=== PATIENT | male | born 1990 | race Caucasian/White ===

== ENCOUNTER 2023-05-04 10:27 | Emergency (ER) | payer MEDICAID ==
[~2023-05-04] VITALS: Ht 167.6 cm; Wt 71.7 kg
--- NOTE | 2023-05-04 10:28 | NUR ---
CALLED FOR TRIAGE AND TOLD ME TO WAIT.
[2023-05-04 10:55] VITALS: BP_SYST 133
--- NOTE | 2023-05-04 11:00 | NUR ---
Patient to ER bed 8 to gown for evaluation. Side rails up. Report given to OLIVIER SIMMONS.
--- NOTE | 2023-05-04 11:00 | NUR ---
PATIENT C/O LOW BACK PAIN 07/07 X 3 1/2 WEEKS. STATES HE HAS TAKEN ADVIL & TYLENOL WITH NO RELIEF. SEEKING EVALUATION. DENIES TRAUMA TO AREA. POOR HISTORIAN D/T INATTENTION.
--- NOTE | 2023-05-04 11:05 | NUR ---
DR MARVIN AT BEDSIDE
[2023-05-04] MEDS ORDERED: KETOROLAC TROMETHAMINE 60 MG/2 ML VIAL IM ONE (11:15)
[2023-05-04] MEDS ORDERED: HYDROcodone/ACETAMIN 10-325 MG TAB PO ONE (11:15)
[2023-05-04] MEDS ORDERED: IBUP-1971 PO (12:02)
[2023-05-04] MEDS ORDERED: TRAM50TA2 PO (12:02)
[2023-05-04 12:37] VITALS: BP_SYST 133
--- NOTE | 2023-05-04 12:37 | NUR ---
Patient given written and verbal discharge instructions and verbalizes understanding. ER MD MARVIN discussed with patient the results and treatment provided. Patient in stable condition. ID arm band removed. IV catheter removed intact and dressing applied, no active bleeding. Rx of IBUPROFEN, TRAMADOL given. Patient educated on pain management and to follow up with PMD. Pain Scale 5/10. Opportunity for questions provided and answered. Medication side effect fact sheet provided.
--- NOTE | 2023-05-04 13:01 | NUR ---
Patient father given written and verbal discharge instructions and verbalizes understanding. ER MD MARVIN discussed with patient father the results and treatment provided. Patient in stable condition. ID arm band removed. Patient family provided education materials and to follow up with PMD. Opportunity for questions provided and answered.
--- NOTE | 2023-05-04 13:22 | NUR ---
SPOKE WITH LUCIANO FROM POISON CONTROL. PROVIDED UPDATE REGARDING PATIENT STATUS. ADVISED REGARDING OPERATION OF HERO MEDICATION SYSTEM, PATIENT BLOOD SUGAR READINGS AND STATUS. STATED THAT FAMILY WAS PROVIDED EASY TO READ EDUCATION MATERIALS ON WHAT TO WATCH FOR AND REASONS TO SEEK TREATMENT WELL ENSURING FAMILY HAS POISON CONTROL NUMBERS PRIOR TO DISCHARGE. LUCIANO STATED SATISFACTION WITH OUTCOME AND THAT POISON CONTROL WILL CLOSE THE FILE.
--- NOTE | 2023-05-04 14:00 | NUR ---
[employer] re: homelessness In to see patient at bedside, however per RN Tony, the patient has left. The patient is homeless and left with his family. The patient was provided a meal, but declined clothing and transportation, as his family had transportation arrangements.
[2023-05-05 07:07] LABS: HEPATITIS A AB, IgM Negative (Negative); HEPATITIS B CORE AB, IgM Negative (Negative); HEPATITIS B SURFACE AG Negative (Negative)
== END 2023-05-04 12:37 | disposition home or self-care (01) ==
LOC: SED 10:27
DX: M54.50 Low back pain, unspecified (principal); Z79.899 Other long term (current) drug therapy
CPT/HCPCS: 99283; 86780; 86592; 36415; 72100; 96372; 80074; J1885